=== PATIENT | female | born 1980 | race Caucasian/White ===

== ENCOUNTER 2017-04-24 14:43 | Inpatient (IN) | payer OTHER ==
[2017-04-24 15:09] VITALS: BMI 29.9
--- NOTE | 2017-04-24 16:53 | HP ---
Admission [facility] Chief Complaint: SEEKING REHAB SERVICES FOR XANAX DEPENDENCE Allergies/Adverse Reactions: Allergies Allergy/AdvReac Type Severity Reaction Status Date / Time Penicillins Allergy Severe Rash Verified 04/24/17 15:29 History of Present Illness: 36 Y.O. WOMAN WITH A HISTORY OF XANAX DEPENDENCE IS HERE SEEKING REHAB. SHE PREVIOUSLY COMPLETED REHAB HERE IN 2014. SHE COMPLETED DETOX TODAY AT [facility]. PT. IS A CLIENT AT [facility] AND REPORTS SHE IS ON 90MG OF METHADONE. LONGEST PERIOD CLEAN HAS BEEN 2 YEARS. Exam Limitations: No Limitations - Ebola screening Have you traveled outside of the country in the last 21 days: No (N) Have you had contact with anyone from an Ebola affected area: No Have you been sick,other than usual withdrawal symptoms: No Do you have a fever: No - Review of Systems Constitutional: No Symptoms Reported EENT: reports: No Symptoms Reported Respiratory: reports: No Symptoms reported Cardiac: reports: No Symptoms Reported GI: reports: No Symptoms Reported : reports: No Symptoms Reported Musculoskeletal: reports: Back Pain Integumentary: reports: No Symptoms Reported Neuro: reports: No Symptoms reported Endocrine: reports: No Symptoms Reported Hematology: reports: No Symptoms Reported Psychiatric: reports: Orientated x3, Anxious, Depressed Other Systems: Reviewed and Negative Patient History - Patient Medical History Hx Anemia: No Hx Asthma: No Hx Chronic Obstructive Pulmonary Disease (COPD): No Hx Cancer: No Hx Cardiac Disorders: No Hx Congestive Heart Failure: No Hx Hypertension: No (Elevated BP during withdrawal) Hx Hypercholesterolemia: No Hx Pacemaker: No HX Cerebrovascular Accident: No Hx Seizures: No Hx Dementia: No Hx Diabetes: No Hx Gastrointestinal Disorders: No Hx Liver Disease: No Hx Genitourinary Disorders: No Hx Sexually Transmitted Disorders: No Hx Renal Disease (ESRD): No Hx Thyroid Disease: No Hx Human Immunodeficiency Virus (HIV): No (negative) Hx Hepatitis C: No Hx Depression: Yes Hx Suicide Attempt: No Hx Bipolar Disorder: No Hx Schizophrenia: No - Patient Surgical History Past Surgical History: No - PPD History Previous Implant?: Yes Documented Results: Negative w/proof PPD to be Administered?: No - Reproductive History Patient is a Female of Child Bearing Age (11 -55 yrs old): Yes Last Menstrual Period: 04/24/17 Patient : No - Smoking Cessation Smoking history: Current every day smoker Have you smoked in the past 12 months: Yes Aproximately how many cigarettes per day: 3 Hx Chewing Tobacco Use: No Initiated information on smoking cessation: Yes 'Breaking Loose' booklet given: 04/24/17 - Substance & Tx. History Hx Alcohol Use: No Hx Substance Use: Yes Substance Use Type: Tranquilizers Hx Substance Use Treatment: Yes (DETOX: 03/2017 REHAB: 09/2014) - Substances Abused Alprazolam (Xanax) Route: Oral Frequency: Daily Amount used: 6MG Age of first use: 31 Date of Last Use: 04/17/17 Family Disease History - Family Disease History Family Disease History: Diabetes: Grandparent (alive), Heart Disease: Grandparent Admission Physical Exam [facility] - Vital Signs Vital Signs: Vital Signs - 24 hr 04/24/17 15:04 Temperature 97.8 F Pulse Rate 73 Respiratory 18 Rate Blood Pressure 130/75 - Physical General Appearance: Yes: No Apparent Distress, Nourished, Appropriately Dressed HEENTM: Yes: Hearing grossly Normal, Normal ENT Inspection, Normocephalic, Normal Voice Respiratory: Yes: Chest Non-Tender, Lungs Clear, Normal Breath Sounds, No Respiratory Distress, No Accessory Muscle Use Breast: Yes: Breast Exam Deferred Cardiology: Yes: Regular Rhythm, Regular Rate Abdominal: Yes: Normal Bowel Sounds, Non Tender Genitourinary: Yes: Other (NO COMPLAINTS REPORTED) Musculoskeletal: Yes: full range of Motion, Gait Steady, Pelvis Stable Extremities: Yes: Normal Capillary Refill, Normal Inspection, Normal Range of Motion, Non-Tender Neurological: Yes: parachute crown sewer II-XII NML intact, Fully Oriented, Alert, Motor Strength 5/5, Normal Mood/Affect Integumentary: Yes: Normal Color, Dry, Warm Lymphatic: Yes: Within Normal Limits - Diagnostic (1) Sedative, hypnotic or anxiolytic dependence with withdrawal, uncomplicated Current Visit: Yes Status: Chronic (2) Methadone maintenance therapy patient Current Visit: Yes Status: Chronic Comment: last dose today for 190mg (3) Nicotine dependence Current Visit: Yes Status: Chronic Cleared for Admission [facility] - Detox or Rehab [facility] Level of Care: Observation Bed Claeared for Rehab Admission: Yes [facility] Breath Alcohol Content Breath Alcohol Content: 0 Urine Pregancy Test - Result Urine Test Results: Negative- NO Line Present Urine Drug Screen - Results Drug Screen Negative: No Urine Drug Screen Results: BZO-Benzodiazepines, MTD-Methadone Inpatient Rehab Admission - Initial Determination Are CD services needed?: Yes Free of communicable disease: Yes Not in need of hospitalization: Yes - Rehab Admission Criteria Previous failed treatment: Yes Poor recovery environment: Yes Comorbidities: No Lacks judgement: No Patient is meeting Inpatient Rehab admission criteria:: Yes
[2017-04-24] MEDS ORDERED: MAG HYDROX/AL HYDROX/SIMETH 30 ML UNIT-DOSE CUP PO PRN (17:06)
[2017-04-24] MEDS ORDERED: MAGNESIUM CITRATE 300 ML BOTTLE PO PRN (17:06)
[2017-04-24] MEDS ORDERED: LOPERAMIDE HCL 2 MG CAPSULE PO PRN (17:06)
[2017-04-24] MEDS ORDERED: P-EPHED 60MG/TRIPROLIDI 2.5MG TABLET PO PRN (17:06)
[2017-04-24] MEDS ORDERED: guaiFENesin/D-METHORPHAN HB 10 ML UNIT-DOSE CUPS PO PRN (17:06)
[2017-04-24] MEDS ORDERED: MAGNESIUM HYDROX 2400MG/30ML ORAL SUSPENSION 30 ML CUP PO PRN (17:06)
[2017-04-24] MEDS ORDERED: ACETAMINOPHEN 325 MG TABLET (FP) PO PRN (17:06)
[2017-04-24] MEDS ORDERED: MENTHOL/PHENOL 1 EACH UD MM PRN (17:06)
[2017-04-24] MEDS: hydrOXYzine PAMOATE 50 MG CAPSULE (FP) PO PRN (21:51)
[2017-04-24] MEDS: THIAMINE HCL 100 MG TABLET (FP) PO SCH (21:51)
[2017-04-24] MEDS: IBUPROFEN 400 MG TABLET (FP) PO PRN (21:51)
[2017-04-25 01:36] LABS: URINE APPEARANCE CLOUDY; URINE BILIRUBIN NEGATIVE (NEGATIVE); URINE BLOOD 1+ (NEGATIVE); URINE COLOR LTYELLOW; URINE GLUCOSE (UA) NEGATIVE (NEGATIVE); URINE KETONE NEGATIVE (NEGATIVE); URINE NITRITE NEGATIVE (NEGATIVE); URINE PROTEIN NEGATIVE (NEGATIVE); URINE UROBILINOGEN NEGATIVE mg/dL (0.2-1.0)
[2017-04-25 02:07] LABS: EPI CELLS MANY /HPF (FEW); URINE BACTERIA RARE /hpf (NONE SEEN)
[2017-04-25] MEDS ORDERED: METHADONE HCL 10 MG TABLET PO SCH (08:15)
[2017-04-25] MEDS ORDERED: METHADONE HCL 10 MG TABLET ONE (08:42)
[2017-04-25] MEDS ORDERED: METHADONE HCL 40 MG DISPERSABLE TABLET ONE (08:43)
[2017-04-25] MEDS: METHADONE 80 MG, METHADONE 10 MG PO SCH (08:43)
--- NOTE | 2017-04-25 09:02 | EKG ---
Test Reason : Blood Pressure : / mmHG Vent. Rate : 059 BPM Atrial Rate : 059 BPM P-R Int : 150 ms QRS Dur : 080 ms QT Int : 460 ms P-R-T Axes : 045 053 056 degrees QTc Int : 455 ms SINUS BRADYCARDIA OTHERWISE NORMAL ECG NO PREVIOUS ECGS AVAILABLE Confirmed by MEENU SANTIAGO, JOSY ([id number]) on 04/25/2017 9:02:25 AM Referred By: KRISTIN RICHEY Confirmed By:JOSY CORRIGAN MD
[2017-04-25] MEDS: IBUPROFEN 400 MG TABLET (FP) PO PRN ×2 (09:05→21:29)
[2017-04-25] MEDS: PRENATAL VITAMINS W/ FOLIC ACID TABLET (FP) PO SCH (09:06)
[2017-04-25 10:17] LABS: ALBUMIN 3.6 g/dl (3.4-5.0); BLOOD UREA NITROGEN 13 mg/dL (7-18); CHLORIDE 106 mmol/L (98-107); POTASSIUM 4.5 mmol/L (3.5-5.1); SGOT/AST 39 U/L (15-37); SGPT/ALT 47 U/L (12-78); SODIUM 139 mmol/L (136-145)
[2017-04-25 10:19] LABS: ALK PHOS 69 U/L (45-117); ANION GAP 5 (8-16); BILIRUBIN,TOTAL 0.3 mg/dL (0.2-1.0); CALCIUM 8.4 mg/dL (8.5-10.1); CO2 28 mmol/L (21-32); CREATININE 1.1 mg/dL (0.55-1.02); GLUCOSE,RANDOM 94 mg/dL (74-106); TOT PROT 6.7 g/dl (6.4-8.2)
[2017-04-25 10:20] LABS: HEMATOCRIT 40.2 % (32.4-45.2); HEMOGLOBIN 13.2 GM/dL (10.7-15.3); MCH 31.6 pg (25.7-33.7); MEAN CELL VOLUME 95.9 fl (80-96); MEAN PLT VOLUME 12.9 fl (7.5-11.1); PLATELET COUNT 143 K/MM3 (134-434); RBC 4.19 M/mm3 (3.60-5.2); RDW 12.5 % (11.6-15.6); WHITE BLOOD COUNT 5.6 K/mm3 (4.0-10.0)
[2017-04-25 10:54] LABS: URINE LEUK ESTERASE 1+ (NEGATIVE)
[2017-04-25] MEDS ORDERED: FLU VACCINE QUAD 60 MCG/0.5 ML (MDV 17-18) IM ONE (12:00)
[2017-04-25] MEDS: hydrOXYzine PAMOATE 50 MG CAPSULE (FP) PO PRN (21:29)
[2017-04-25] MEDS: THIAMINE HCL 100 MG TABLET (FP) PO SCH (21:29)
[2017-04-26] MEDS ORDERED: METHADONE HCL 10 MG TABLET ONE (03:23)
[2017-04-26] MEDS ORDERED: METHADONE HCL 40 MG DISPERSABLE TABLET ONE (03:23)
[2017-04-26] MEDS: METHADONE 80 MG, METHADONE 10 MG PO SCH (06:36)
[2017-04-26] MEDS: PRENATAL VITAMINS W/ FOLIC ACID TABLET (FP) PO SCH (10:16)
[2017-04-26] MEDS: IBUPROFEN 400 MG TABLET (FP) PO PRN (11:08)
[2017-04-26] MEDS: THIAMINE HCL 100 MG TABLET (FP) PO SCH (21:30)
[2017-04-26] MEDS: hydrOXYzine PAMOATE 50 MG CAPSULE (FP) PO PRN (21:53)
[2017-04-27] MEDS ORDERED: METHADONE HCL 10 MG TABLET ONE (05:19)
[2017-04-27] MEDS ORDERED: METHADONE HCL 40 MG DISPERSABLE TABLET ONE (05:20)
[2017-04-27] MEDS: METHADONE 80 MG, METHADONE 10 MG PO SCH (05:59)
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
[2017-04-27] MEDS: PRENATAL VITAMINS W/ FOLIC ACID TABLET (FP) PO SCH (10:14)
[2017-04-27] MEDS: IBUPROFEN 400 MG TABLET (FP) PO PRN ×2 (10:53→21:34)
[2017-04-27] MEDS: THIAMINE HCL 100 MG TABLET (FP) PO SCH (21:33)
[2017-04-27] MEDS: hydrOXYzine PAMOATE 50 MG CAPSULE (FP) PO PRN (21:34)
[2017-04-28] MEDS ORDERED: METHADONE HCL 40 MG DISPERSABLE TABLET ONE (05:44)
[2017-04-28] MEDS ORDERED: METHADONE HCL 10 MG TABLET ONE (05:44)
[2017-04-28] MEDS: METHADONE 80 MG, METHADONE 10 MG PO SCH (06:23)
[2017-04-28] MEDS: PRENATAL VITAMINS W/ FOLIC ACID TABLET (FP) PO SCH (10:07)
[2017-04-28] MEDS: IBUPROFEN 400 MG TABLET (FP) PO PRN ×2 (10:08→21:39)
[2017-04-28] MEDS: THIAMINE HCL 100 MG TABLET (FP) PO SCH (21:38)
[2017-04-29] MEDS ORDERED: METHADONE HCL 10 MG TABLET ONE (03:34)
[2017-04-29] MEDS ORDERED: METHADONE HCL 40 MG DISPERSABLE TABLET ONE (03:35)
[2017-04-29] MEDS: METHADONE 80 MG, METHADONE 10 MG PO SCH (06:36)
[2017-04-29] MEDS: PRENATAL VITAMINS W/ FOLIC ACID TABLET (FP) PO SCH (10:16)
[2017-04-29] MEDS: IBUPROFEN 400 MG TABLET (FP) PO PRN ×2 (10:16→21:40)
[2017-04-29] MEDS ORDERED: PT OWN MED DRAWER 7, Y5N ONE (14:35)
[2017-04-29] MEDS: THIAMINE HCL 100 MG TABLET (FP) PO SCH (21:39)
[2017-04-30] MEDS ORDERED: METHADONE HCL 40 MG DISPERSABLE TABLET ONE (02:56)
[2017-04-30] MEDS ORDERED: METHADONE HCL 10 MG TABLET ONE (02:56)
[2017-04-30] MEDS: METHADONE 80 MG, METHADONE 10 MG PO SCH (06:26)
[2017-04-30] MEDS: PRENATAL VITAMINS W/ FOLIC ACID TABLET (FP) PO SCH (10:10)
[2017-04-30] MEDS: IBUPROFEN 400 MG TABLET (FP) PO PRN (15:40)
[2017-04-30] MEDS: THIAMINE HCL 100 MG TABLET (FP) PO SCH (21:38)
[2017-05-01] MEDS ORDERED: METHADONE HCL 10 MG TABLET ONE (03:30)
[2017-05-01] MEDS ORDERED: METHADONE HCL 40 MG DISPERSABLE TABLET ONE (03:31)
[2017-05-01] MEDS: METHADONE 80 MG, METHADONE 10 MG PO SCH (06:15)
[2017-05-01] MEDS: PRENATAL VITAMINS W/ FOLIC ACID TABLET (FP) PO SCH (10:18)
[2017-05-01] MEDS: IBUPROFEN 400 MG TABLET (FP) PO PRN ×2 (10:45→21:54)
[2017-05-01] MEDS: hydrOXYzine PAMOATE 50 MG CAPSULE (FP) PO PRN (15:23)
[2017-05-01] MEDS: NICOTINE 14 MG/24 HOURS TOPICAL PATCH TD SCH (15:35)
[2017-05-01] MEDS: THIAMINE HCL 100 MG TABLET (FP) PO SCH (21:54)
[2017-05-01] MEDS: NICOTINE POLACRILEX 2 MG GUM BUC PRN (21:54)
[2017-05-02] MEDS ORDERED: METHADONE HCL 40 MG DISPERSABLE TABLET ONE (05:59)
[2017-05-02] MEDS ORDERED: METHADONE HCL 10 MG TABLET ONE (05:59)
[2017-05-02] MEDS: METHADONE 80 MG, METHADONE 10 MG PO SCH (06:15)
[2017-05-02] MEDS: NICOTINE 14 MG/24 HOURS TOPICAL PATCH TD SCH (10:08)
[2017-05-02] MEDS: NICOTINE POLACRILEX 2 MG GUM BUC PRN ×2 (10:08→14:21)
[2017-05-02] MEDS: PRENATAL VITAMINS W/ FOLIC ACID TABLET (FP) PO SCH (10:08)
[2017-05-02] MEDS: IBUPROFEN 400 MG TABLET (FP) PO PRN (14:20)
[2017-05-02] MEDS: THIAMINE HCL 100 MG TABLET (FP) PO SCH (21:41)
[2017-05-03] MEDS ORDERED: METHADONE HCL 10 MG TABLET ONE (05:52)
[2017-05-03] MEDS ORDERED: METHADONE HCL 40 MG DISPERSABLE TABLET ONE (05:53)
[2017-05-03] MEDS: METHADONE 80 MG, METHADONE 10 MG PO SCH (07:01)
[2017-05-03] MEDS: PRENATAL VITAMINS W/ FOLIC ACID TABLET (FP) PO SCH (09:44)
[2017-05-03] MEDS: NICOTINE 14 MG/24 HOURS TOPICAL PATCH TD SCH (09:44)
[2017-05-03] MEDS: hydrOXYzine PAMOATE 50 MG CAPSULE (FP) PO PRN (09:44)
[2017-05-03] MEDS: IBUPROFEN 400 MG TABLET (FP) PO PRN (09:45)
[2017-05-03] MEDS: NICOTINE POLACRILEX 2 MG GUM BUC PRN ×2 (09:46→21:39)
[2017-05-03] MEDS: THIAMINE HCL 100 MG TABLET (FP) PO SCH (21:39)
[2017-05-04] MEDS ORDERED: METHADONE HCL 10 MG TABLET ONE (05:57)
[2017-05-04] MEDS ORDERED: METHADONE HCL 40 MG DISPERSABLE TABLET ONE (05:57)
[2017-05-04] MEDS: METHADONE 80 MG, METHADONE 10 MG PO SCH (06:42)
[2017-05-04] MEDS: PRENATAL VITAMINS W/ FOLIC ACID TABLET (FP) PO SCH (10:12)
[2017-05-04] MEDS: NICOTINE 14 MG/24 HOURS TOPICAL PATCH TD SCH (10:12)
[2017-05-04] MEDS: IBUPROFEN 400 MG TABLET (FP) PO PRN (10:13)
[2017-05-04] MEDS: NICOTINE POLACRILEX 2 MG GUM BUC PRN ×2 (10:14→12:21)
[2017-05-04] MEDS: hydrOXYzine PAMOATE 50 MG CAPSULE (FP) PO PRN (18:22)
[2017-05-04] MEDS: THIAMINE HCL 100 MG TABLET (FP) PO SCH (21:38)
[2017-05-05] MEDS ORDERED: METHADONE HCL 10 MG TABLET ONE (03:13)
[2017-05-05] MEDS ORDERED: METHADONE HCL 40 MG DISPERSABLE TABLET ONE (03:13)
[2017-05-05] MEDS: METHADONE 80 MG, METHADONE 10 MG PO SCH (06:30)
[2017-05-05] MEDS: NICOTINE 14 MG/24 HOURS TOPICAL PATCH TD SCH (10:15)
[2017-05-05] MEDS: NICOTINE POLACRILEX 2 MG GUM BUC PRN ×3 (10:16→21:38)
[2017-05-05] MEDS: PRENATAL VITAMINS W/ FOLIC ACID TABLET (FP) PO SCH (10:16)
[2017-05-05] MEDS: IBUPROFEN 400 MG TABLET (FP) PO PRN (18:19)
[2017-05-05] MEDS: hydrOXYzine PAMOATE 50 MG CAPSULE (FP) PO PRN (20:19)
[2017-05-05] MEDS: THIAMINE HCL 100 MG TABLET (FP) PO SCH (21:38)
[2017-05-06] MEDS ORDERED: METHADONE HCL 40 MG DISPERSABLE TABLET ONE (03:30)
[2017-05-06] MEDS ORDERED: METHADONE HCL 10 MG TABLET ONE (03:30)
[2017-05-06] MEDS: METHADONE 80 MG, METHADONE 10 MG PO SCH (06:44)
[2017-05-06] MEDS: NICOTINE 14 MG/24 HOURS TOPICAL PATCH TD SCH (09:29)
[2017-05-06] MEDS: hydrOXYzine PAMOATE 50 MG CAPSULE (FP) PO PRN ×2 (09:29→19:00)
[2017-05-06] MEDS: NICOTINE POLACRILEX 2 MG GUM BUC PRN ×3 (09:29→21:43)
[2017-05-06] MEDS: IBUPROFEN 400 MG TABLET (FP) PO PRN (09:29)
[2017-05-06] MEDS: PRENATAL VITAMINS W/ FOLIC ACID TABLET (FP) PO SCH (09:29)
[2017-05-06] MEDS: THIAMINE HCL 100 MG TABLET (FP) PO SCH (21:43)
[2017-05-07] MEDS ORDERED: METHADONE HCL 10 MG TABLET ONE (03:14)
[2017-05-07] MEDS ORDERED: METHADONE HCL 40 MG DISPERSABLE TABLET ONE (03:14)
[2017-05-07] MEDS: METHADONE 80 MG, METHADONE 10 MG PO SCH (06:43)
[2017-05-07] MEDS: NICOTINE POLACRILEX 2 MG GUM BUC PRN ×2 (09:51→18:09)
[2017-05-07] MEDS: NICOTINE 14 MG/24 HOURS TOPICAL PATCH TD SCH (09:51)
[2017-05-07] MEDS: PRENATAL VITAMINS W/ FOLIC ACID TABLET (FP) PO SCH (09:51)
[2017-05-07] MEDS: IBUPROFEN 400 MG TABLET (FP) PO PRN (13:25)
--- NOTE | 2017-05-07 13:35 | PN ---
Psychiatric Progress Note Vital Signs: Vital Signs Period Temp Pulse Resp BP Sys/Garcia Pulse Ox Last 24 Hr 98.1 F 63 18-18 124/85 Date of Session: 05/07/17 Chief Complaint:: Discharge Note HPI: Patient addressing Sedative, Hypnitic or Anxiolytic Dependence comorbid with Opoid Dependence on Agonist therapy, Nicotine Dependence and Substance- induced Mood Disorder ROS: Low back pain Current Medications: Active Medications Generic Name Dose Route Start Last Admin Trade Name Freq PRN Reason Stop Dose Admin Acetaminophen 650 mg 04/24/17 17:06 Tylenol - PO Q4H PRN PAIN Al Hydroxide/Mg Hydroxide 30 ml 04/24/17 17:06 Mylanta Oral Suspension - PO Q6H PRN DYSPEPSIA Eucalyptus/Menthol/Phenol/Sorbitol 1 each 04/24/17 17:06 Cepastat Lozenge - MM Q4H PRN SORE THROAT Guaifenesin 10 ml 04/24/17 17:06 Robitussin Dm - PO Q6H PRN COUGH Hydroxyzine Pamoate 50 mg 04/24/17 17:06 05/06/17 19:00 Vistaril - PO 50 mg Q4H PRN Administration AGITATION Ibuprofen 400 mg 04/24/17 17:06 05/07/17 13:25 Motrin - PO 400 mg Q6H PRN Administration SEVERE PAIN Loperamide HCl 4 mg 04/24/17 17:06 Imodium - PO Q6H PRN DIARRHEA Magnesium Citrate 300 ml 04/24/17 17:06 Citroma - PO Q48H PRN CONSTIPATION Magnesium Hydroxide 30 ml 04/24/17 17:06 Milk Of Magnesia - PO DAILY PRN CONSTIPATION Methadone HCl 80 mg/ Methadone 90 mg 05/03/17 06:00 05/07/17 06:43 HCl 10 mg PO 90 mg DAILY@0600 SHERYL Administration Nicotine 14 mg 05/01/17 14:15 05/07/17 09:51 Nicoderm Patch - TD Not Given DAILY SHERYL Nicotine Polacrilex 2 mg 05/01/17 14:09 05/07/17 09:51 Nicorette Gum - BUC 2 mg Q2H PRN Administration NICOTINE REPLACEMENT RX Multivit/Folic Acid/Iron 1 tab 04/25/17 10:00 05/07/17 09:51 Vitamins (Sjr) - PO 1 tab DAILY SHERYL Administration Pseudoephedrine/Triprolidine 1 combo 04/24/17 17:06 Actifed - PO TID PRN NASAL CONGESTION Thiamine HCl 100 mg 04/24/17 22:00 05/06/17 21:43 Vitamin B1 - PO 100 mg HS SHERYL Administration Current Side Effect: No Lab tests ordered: Yes Lab tests reviewed: Yes Provider note:: Patient will complete this program on 05/08/17. She has met her treatment goals and will continue to address her issues in outpatient treatment at [facility] at [address] [place] [address]. She is stable for discharge on 05/08/17 Total face to face time:: 35 Psychiatric Treatment Plan - Problem List (1) Sedative hypnotic or anxiolytic dependence Current Visit: Yes (2) Opioid dependence on agonist therapy Current Visit: Yes (3) Nicotine dependence Current Visit: Yes (4) Psychoactive substance-induced mood disorder Current Visit: Yes (5) Low back pain Current Visit: Yes Initial treatment plan: Patient will be discharged tomorrow and referred to [facility] for outpatient treatment
--- NOTE | 2017-05-07 14:53 | PN ---
Psychiatric Progress Note Vital Signs: Vital Signs Period Temp Pulse Resp BP Sys/Garcia Pulse Ox Last 24 Hr 98.1 F 63 18-18 124/85 Date of Session: 05/07/17 Chief Complaint:: Discharge visit HPI: Pt. is a 36 year old female, single, mother of four. Pt. with a history of cocaine, opiate, and benzodiazepine dependence. ROS: Alert and oriented X3. Pt. is medically stable. Current Medications: Active Medications Generic Name Dose Route Start Last Admin Trade Name Freq PRN Reason Stop Dose Admin Acetaminophen 650 mg 04/24/17 17:06 Tylenol - PO Q4H PRN PAIN Al Hydroxide/Mg Hydroxide 30 ml 04/24/17 17:06 Mylanta Oral Suspension - PO Q6H PRN DYSPEPSIA Eucalyptus/Menthol/Phenol/Sorbitol 1 each 04/24/17 17:06 Cepastat Lozenge - MM Q4H PRN SORE THROAT Guaifenesin 10 ml 04/24/17 17:06 Robitussin Dm - PO Q6H PRN COUGH Hydroxyzine Pamoate 50 mg 04/24/17 17:06 05/06/17 19:00 Vistaril - PO 50 mg Q4H PRN Administration AGITATION Ibuprofen 400 mg 04/24/17 17:06 05/07/17 13:25 Motrin - PO 400 mg Q6H PRN Administration SEVERE PAIN Loperamide HCl 4 mg 04/24/17 17:06 Imodium - PO Q6H PRN DIARRHEA Magnesium Citrate 300 ml 04/24/17 17:06 Citroma - PO Q48H PRN CONSTIPATION Magnesium Hydroxide 30 ml 04/24/17 17:06 Milk Of Magnesia - PO DAILY PRN CONSTIPATION Methadone HCl 80 mg/ Methadone 90 mg 05/03/17 06:00 05/07/17 06:43 HCl 10 mg PO 90 mg DAILY@0600 SHERYL Administration Nicotine 14 mg 05/01/17 14:15 05/07/17 09:51 Nicoderm Patch - TD Not Given DAILY SHERYL Nicotine Polacrilex 2 mg 05/01/17 14:09 05/07/17 09:51 Nicorette Gum - BUC 2 mg Q2H PRN Administration NICOTINE REPLACEMENT RX Multivit/Folic Acid/Iron 1 tab 04/25/17 10:00 05/07/17 09:51 Vitamins (Sjr) - PO 1 tab DAILY SHERYL Administration Pseudoephedrine/Triprolidine 1 combo 04/24/17 17:06 Actifed - PO TID PRN NASAL CONGESTION Thiamine HCl 100 mg 04/24/17 22:00 05/06/17 21:43 Vitamin B1 - PO 100 mg HS SHERYL Administration Medication(s) Change(s): No Current Side Effect: No Lab tests ordered: No Lab tests reviewed: Yes Provider note:: Pt. will complete the rehab program on 05/08/2017. Patient has met her treatment goals and now plans on continuing her methadone and Nadap program in [place], [place]. Pt. is stable for discharge tomorrow. Total face to face time:: 20 Mental Status Exam - Mental Status Exam Alert and Oriented to: Time, Place, Person Cognitive Function: Good Patient Appearance: Well Groomed Mood: Hopeful Affect: Appropriate, Mood Congruent Patient Behavior: Appropriate, Cooperative Speech Pattern: Clear, Appropriate Voice Loudness: Normal Thought Process: Intact, Goal Oriented Thought Disorder: Not Present Hallucinations: Denies Suicidal Ideation: Denies Homicidal Ideation: Denies Insight/Judgement: Good Sleep: Well Appetite: Good Muscle strength/Tone: Normal Gait/Station: Normal Psychiatric Treatment Plan - Problem List (1) Opioid dependence in controlled environment Current Visit: Yes (2) Nicotine dependence Current Visit: Yes (3) Psychoactive substance-induced mood disorder Current Visit: Yes (4) Anxiolytic dependence Current Visit: Yes (5) Methadone maintenance therapy patient Current Visit: Yes
[2017-05-07] MEDS: THIAMINE HCL 100 MG TABLET (FP) PO SCH (21:40)
[2017-05-07] MEDS: hydrOXYzine PAMOATE 50 MG CAPSULE (FP) PO PRN (21:41)
[2017-05-08] MEDS ORDERED: METHADONE HCL 10 MG TABLET ONE (05:58)
[2017-05-08] MEDS ORDERED: METHADONE HCL 40 MG DISPERSABLE TABLET ONE (05:59)
[2017-05-08] MEDS: METHADONE 80 MG, METHADONE 10 MG PO SCH (06:32)
[2017-05-08 07:22] VITALS: BP 118/80; PULSE 71; TEMP 98.3
[2017-05-08] MEDS: PRENATAL VITAMINS W/ FOLIC ACID TABLET (FP) PO SCH (09:55)
[2017-05-08] MEDS: NICOTINE 14 MG/24 HOURS TOPICAL PATCH TD SCH (09:56)
== END 2017-05-08 10:00 | disposition home or self-care (01) | DRG 772 ==
LOC: YASAS 14:43 → Y3E 15:54
PROVIDERS: ADMIT Psychiatry & Neurology Psychiatry; ATTEND Psychiatry & Neurology Psychiatry
PROC: HZ42ZZZ Group Counseling for Substance Abuse Treatment, Cognitive-Behavioral (ICD-10-PCS; principal; 2017-04-24)
DX: F11.20 Opioid dependence, uncomplicated (principal); F13.230 Sedative, hypnotic or anxiolytic dependence with withdrawal, uncomplicated; F17.210 Nicotine dependence, cigarettes, uncomplicated; F19.24 Other psychoactive substance dependence with psychoactive substance-induced mood disorder; Z59.0 Homelessness
CPT/HCPCS: 36415; 80053; 81003; 81015; 85027; 86593; 90688; 93005; 93010; G0008